=== PATIENT | male | born 1990 | race Caucasian/White ===

== ENCOUNTER 2016-11-20 17:23 | Emergency (ER) | payer BC ==
[~2016-11-20 17:23] MED LIST: ALBUTEROL17 GM INH; BENTYL20 M1 PO; BENZONATATE PO; FLEXERIL PO; IMODIUM2 MG PO; MOBIC15 MG PO; NO MEDICATIONS; PREDNISONE PO; TRAMADOL HCL50 M1 PO; VIBRAMYCIN100 M1 PO; VOLTAREN PO; VOLTAREN75 MG PO
== END 2016-11-20 18:23 | disposition home or self-care (01) ==
LOC: SED 17:23
DX: M25.562 Pain in left knee (principal); Z98.890 Other specified postprocedural states; F17.210 Nicotine dependence, cigarettes, uncomplicated
CPT/HCPCS: 29530; 99283